=== PATIENT | male | born 1995 | race Caucasian/White ===

== ENCOUNTER 2016-12-01 20:09 | Emergency (ER) | payer SELFPAY ==
[2016-12-01 20:34] VITALS: BP 135/83
--- NOTE | 2016-12-01 20:51 | UC ---
Throat Pain/Nasal Homero HPI - HPI Summary HPI Summary: Started with chest congestion that turned into a sore throat 4-5 days ago. Sister has recently had strep. He had 4 leftover amoxicillin pills, does not know dose, took them and then sx worsened when he ran out. - History of Current Complaint Stated Complaint: SORE THROAT Time Seen by Provider: 12/01/16 20:32 Hx Obtained From: Patient Onset/Duration: Gradual Onset, Lasting Days Severity: Mild Cough: Productive Associated Signs & Symptoms: Negative: Wheezing, Hoarseness, Fever, Vomiting, Rash - Allergies/Home Medications Allergies/Adverse Reactions: Allergies Allergy/AdvReac Type Severity Reaction Status Date / Time No Known Allergies Allergy Verified 12/01/16 20:34 PMH/Surg Hx/FS Hx/Imm Hx Previously Healthy: Yes Other History Of: Negative For: Anticoagulant Therapy - Surgical History Surgical History: Yes Surgery Procedure, Year, and Place: Femur surg at age 2 d/t fx. - Family History Known Family History: Positive: Hypertension - Social History Lives: With Family Alcohol Use: Occasionally Substance Use Type: None Smoking Status (MU): Never Smoked Tobacco Review of Systems Constitutional: Negative Skin: Negative Eyes: Negative ENT: Sore Throat Respiratory: Cough Cardiovascular: Negative Gastrointestinal: Negative Genitourinary: Negative Motor: Negative Neurovascular: Negative Musculoskeletal: Negative Neurological: Negative Psychological: Negative Is Patient Immunocompromised?: No All Other Systems Reviewed And Are Negative: Yes Physical Exam Triage Information Reviewed: Yes Appearance: Well-Appearing, No Pain Distress, Well-Nourished Vital Signs: Initial Vital Signs Temp 98.7 F 12/01/16 20:30 Pulse 77 12/01/16 20:30 Resp 16 12/01/16 20:30 BP 135/83 12/01/16 20:30 Pulse Ox 100 12/01/16 20:30 Vital Signs Reviewed: Yes Eye Exam: Normal Eyes: Positive: Conjunctiva Clear ENT: Positive: TMs normal, Tonsillar swelling. Negative: Pharyngeal erythema, Nasal congestion, Nasal drainage Dental Exam: Normal Neck exam: Normal Neck: Positive: Supple, Nontender, No Lymphadenopathy Respiratory Exam: Normal Respiratory: Positive: Chest non-tender, Lungs clear, Normal breath sounds, No respiratory distress, No accessory muscle use Cardiovascular Exam: Normal Cardiovascular: Positive: RRR, No Murmur Musculoskeletal Exam: Normal Neurological Exam: Normal Neurological: Positive: Alert Psychological Exam: Normal Skin Exam: Normal Throat Pain/Nasal Course/Dx - Differential Dx/Diagnosis Provider Diagnoses: URI, likely viral Discharge - Discharge Plan Condition: Stable Disposition: HOME Patient Education Materials: Upper Respiratory Infection (ED) Referrals: Amanda Blake DO [Primary Care Provider] - Additional Instructions: Rapid strep negative. Call or return if you have severe symptoms or sudden worsening.
== END 2016-12-01 20:55 | disposition home or self-care (01) ==
LOC: UCEAST 20:09
DX: J06.9 Acute upper respiratory infection, unspecified (principal)
CPT/HCPCS: 87651; 99212; G0463

== ENCOUNTER 2017-05-09 16:02 | Emergency (ER) | payer SELFPAY ==
[2017-05-09 16:24] VITALS: BP 165/95
--- NOTE | 2017-05-09 17:05 | UC ---
Cardiac HPI - HPI Summary HPI Summary: gets left sided chest pain when he gets anxious-is not having any pain at this time but did earlier---states he has notice a slow increase in his "intensity" with conversation over the past 2 years and He is never able to sit down and he is always moving about. States he gets migraine headaches and he smokes marijuana for that---patient has notice an increase in personal stresses over the past 2 week--girlfriend had a miscarriage, she has 2 toddler boys he is helping to raise-he is in debt to hos grandmother and she will charge him interest if he is late--Patient states many family members have anxiety disorders and he has never been treated or hospitalized in the past for anxiety- -Patient denies HI/SI - History of Current Complaint Chief Complaint: UCChestPain Stated Complaint: CHEST PAIN, L ARM PAIN Time Seen by Provider: 05/09/17 16:14 Hx Obtained From: Patient Onset/Duration: Gradual Onset, Resolved Timing: Intermittent Episodes Lasting: Initial Severity: Moderate Current Severity: None Pain Intensity: 0 Chest Pain Location: Left Lateral Aggravating Factor(s): Other - personal and life stress Alleviating Factor(s): Spontaneous Resolution Associated Signs & Symptoms: Positive: Anxiety, Recent Stress - Allergy/Home Medications Allergies/Adverse Reactions: Allergies Allergy/AdvReac Type Severity Reaction Status Date / Time No Known Allergies Allergy Verified 05/09/17 16:24 PMH/Surg Hx/FS Hx/Imm Hx Previously Healthy: No Neurological History: Migraine Other History Of: Negative For: Anticoagulant Therapy - Surgical History Surgical History: None Surgery Procedure, Year, and Place: pt denies - Family History Known Family History: Positive: Cardiac Disease, Hypertension, Other - anxiety - Social History Occupation: Employed Full-time Lives: With Family Alcohol Use: Rare Substance Use Type: Marijuana Substance Use Comment - Amount & Last Used: three days ago Smoking Status (MU): Never Smoked Tobacco Review of Systems Constitutional: Negative Skin: Negative Eyes: Negative ENT: Negative Respiratory: Negative Cardiovascular: Negative, Chest Pain - resolved Gastrointestinal: Negative Genitourinary: Negative Motor: Negative Neurovascular: Negative Musculoskeletal: Negative Neurological: Negative Psychological: Anxious Is Patient Immunocompromised?: No All Other Systems Reviewed And Are Negative: Yes Physical Exam Triage Information Reviewed: Yes Appearance: Well-Appearing, No Pain Distress, Well-Nourished Vital Signs: Initial Vital Signs Temp 99.5 F 05/09/17 16:15 Pulse 102 05/09/17 16:15 Resp 16 05/09/17 16:15 BP 165/95 05/09/17 16:15 Pulse Ox 98 05/09/17 16:15 Vital Signs Reviewed: Yes Eye Exam: Normal Eyes: Positive: Conjunctiva Clear ENT Exam: Normal ENT: Positive: Normal ENT inspection, Hearing grossly normal. Negative: Nasal congestion, Trismus, Muffled voice, Hoarse voice, Dental tenderness Dental Exam: Normal Neck exam: Normal Neck: Positive: Supple, Nontender Respiratory Exam: Normal Respiratory: Positive: No respiratory distress, No accessory muscle use Cardiovascular Exam: Normal Cardiovascular: Positive: Pulses Normal, Brisk Capillary Refill Musculoskeletal Exam: Normal Musculoskeletal: Positive: Strength Intact, ROM Intact, No Edema Neurological Exam: Normal Neurological: Positive: Alert, Muscle Tone Normal Psychological Exam: Normal Skin Exam: Normal Diagnostics - EKG Cardiac Rate: NL Cardiac Rhythm: Sinus: Normal Ectopy: None ST Segment: Normal - Assessment/Plan Course Of Treatment: Vistaril PRN Anxiety follow with family and childrens services, hypertension follow with pcp referrals made - Clinical Impression Provider Diagnoses: Ches pain (resolved), social stressors Discharge - Discharge Plan Condition: Stable Disposition: HOME Prescriptions: hydrOXYzine pamoate [Vistaril] 25 - 50 mg PO QID PRN #30 capsule PRN Reason: Anxiety Patient Education Materials: Hypertension (ED), Anxiety (ED) Forms: *Work Release Referrals: [facility] [place] [facility] REFERRAL [Outside] - As Soon As Possible Additional Instructions: Family and Childrens service will be an excellent resource for you please call Thursday for an intake appointment
== END 2017-05-09 17:04 | disposition home or self-care (01) ==
LOC: UCEAST 16:02
DX: R07.89 Other chest pain (principal); F43.9 Reaction to severe stress, unspecified; G43.909 Migraine, unspecified, not intractable, without status migrainosus
CPT/HCPCS: 93005; 99212; G0463

== ENCOUNTER 2017-06-25 12:38 | Emergency (ER) | payer SELFPAY ==
[2017-06-25 12:47] VITALS: BP 151/86
--- NOTE | 2017-06-25 13:11 | UC ---
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 Also c/o "carpal tunnel like sx" of 3 1/2 fingers in left hand. Pt was here a month ago with similar complaint but never had follow up, has no PCP as he recently moved to [place] from [place] - History of Current Complaint Chief Complaint: UCUpperExtremity Stated Complaint: ARM COMPLAINT Time Seen by Provider: 06/25/17 12:46 Hx Obtained From: Patient Onset/Duration: Sudden Onset Severity Initially: Moderate Severity Currently: Moderate Pain Intensity: 6 Character: Sharp, Throbbing Aggravating Factor(s): Movement, Lifting, Flexion - Allergies/Home Medications Allergies/Adverse Reactions: Allergies Allergy/AdvReac Type Severity Reaction Status Date / Time No Known Allergies Allergy Verified 06/25/17 12:47 PMH/Surg Hx/FS Hx/Imm Hx Previously Healthy: Yes Other History Of: Negative For: Anticoagulant Therapy - Surgical History Surgical History: None Surgery Procedure, Year, and Place: pt denies - Family History Known Family History: Positive: Cardiac Disease, Hypertension, Other - anxiety - Social History Alcohol Use: Occasionally Substance Use Type: Marijuana Substance Use Comment - Amount & Last Used: three days ago Smoking Status (MU): Never Smoked Tobacco - Immunization History Most Recent Tetanus Shot: UTD Review of Systems Constitutional: Negative Skin: Negative Eyes: Negative ENT: Negative Respiratory: Negative Cardiovascular: Negative Gastrointestinal: Negative Genitourinary: Negative Motor: Negative Neurovascular: Negative Musculoskeletal: Other: - left shoulder pain Neurological: Negative Psychological: Negative All Other Systems Reviewed And Are Negative: Yes Physical Exam Triage Information Reviewed: Yes Vital Signs: Initial Vital Signs Temp 36.6 C 06/25/17 12:43 Pulse 92 06/25/17 12:43 Resp 18 06/25/17 12:43 BP 151/86 06/25/17 12:43 Pulse Ox 98 06/25/17 12:43 Eye Exam: Normal ENT Exam: Normal Dental Exam: Normal Neck exam: Normal Neck: Positive: 1 Respiratory Exam: Normal Cardiovascular Exam: Normal Abdominal Exam: Normal Musculoskeletal Exam: Normal Musculoskeletal: Positive: ROM Intact, Strength Limited @, Other: - LEFT ARM: ROm intact about the left shoulder joint but TTP on anterior and posterior deltoids, TTP on insertion of short head of biceps tendon medially into the radial tuberosity POSITIVE Phalen's sign, Radial pulse 2+ Neurological Exam: Normal Psychological Exam: Normal Skin Exam: Normal Upper Extremity Course/Dx - Course Course Of Treatment: Pt will need to establish care with a PCP and obtain a referral for MRI and ortho consult - Differential Dx/Diagnosis Provider Diagnoses: Left Rotator cuff tendinopathy and injury. Left biceps tedinitis. carpal tunnel's left hand Discharge - Sign-Out/Discharge Documenting (check all that apply): Discharge - Discharge Plan Condition: Stable Disposition: HOME Prescriptions: Naproxen 500 mg PO BID 10 Days #20 tablet Referrals: [facility] [place] [facility] [Outside] - As Soon As Possible (Please call PCP off ice to schedule appt) - Billing Disposition and Condition Condition: STABLE Disposition: HOME
== END 2017-06-25 13:38 | disposition home or self-care (01) ==
LOC: UCEAST 12:38
DX: S46.012A Strain of muscle(s) and tendon(s) of the rotator cuff of left shoulder, initial encounter (principal); X58.XXXA Exposure to other specified factors, initial encounter; Y93.9 Activity, unspecified; Y92.9 Unspecified place or not applicable; M75.22 Bicipital tendinitis, left shoulder; G56.02 Carpal tunnel syndrome, left upper limb
CPT/HCPCS: 99212; G0463

== ENCOUNTER 2017-07-09 12:21 | Emergency (ER) | payer SELFPAY ==
--- NOTE | 2017-07-09 13:49 | RAD ---
HISTORY: Right ulnar pain, subacute trauma COMPARISONS: None VIEWS: 3, Frontal and lateral views of the right forearm FINDINGS: BONE DENSITY: Normal. BONES: There is no displaced fracture. JOINTS: There is no arthropathy. ALIGNMENT: There is no dislocation. SOFT TISSUES: Unremarkable. OTHER FINDINGS: None. IMPRESSION: NO ACUTE OSSEOUS INJURY. IF SYMPTOMS PERSIST, RECOMMEND REPEAT IMAGING.
--- NOTE | 2017-07-09 13:49 | RAD ---
HISTORY: Right hand pain, fall COMPARISONS: None VIEWS: 2, Frontal and lateral views of the right hand FINDINGS: BONE DENSITY: Normal. BONES: There is no displaced fracture. JOINTS: There is no arthropathy. ALIGNMENT: There is no dislocation. SOFT TISSUES: Unremarkable. OTHER FINDINGS: None. IMPRESSION: NO ACUTE OSSEOUS INJURY. IF SYMPTOMS PERSIST, RECOMMEND REPEAT IMAGING.
[2017-07-09] MEDS ORDERED: Ibuprofen TAB* 600 MG PO ONE (13:52)
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
[2017-07-09 14:35] VITALS: BP 141/82
== END 2017-07-09 14:34 | disposition home or self-care (01) ==
LOC: ED 12:21
DX: S60.221A Contusion of right hand, initial encounter (principal); W22.8XXA Striking against or struck by other objects, initial encounter; Y93.I9 Activity, other involving external motion; Y92.9 Unspecified place or not applicable
CPT/HCPCS: 99282; A9270-GY

== ENCOUNTER 2018-09-24 16:01 | Emergency (ER) | payer SELFPAY ==
--- NOTE | 2018-09-24 18:22 | ED ---
Lower Extremity - HPI Summary HPI Summary: 23-year-old male presents with complaints of ingrown toenail to the right great toe. States he started developing some tenderness and redness to the lateral nail fold approximately one week ago. Has progressively become more tender and he has noted some drainage for the past 2-3 days. States he was seen for similar episode approximately one month ago at [facility] and they attempted to do a wedge resection of the toenail however he states he does not feel that it was successful. Denies any fever or chills. - History of Current Complaint Chief Complaint: EDExtremityLower Stated Complaint: RIGHT BIG TOE INFECTION PER PT Time Seen by Provider: 09/24/18 17:51 Hx Obtained From: Patient Pain Intensity: 7 - Allergies/Home Medications Allergies/Adverse Reactions: Allergies Allergy/AdvReac Type Severity Reaction Status Date / Time No Known Allergies Allergy Verified 09/24/18 16:15 PMH/Surg Hx/FS Hx/Imm Hx Previously Healthy: Yes - Denies significant PMH Endocrine/Hematology History: Denies: Hx Anticoagulant Therapy, Hx Diabetes, Hx Thyroid Disease, Other Endocrine/Hematological Disorders Cardiovascular History: Reports: Hx Hypertension - no medication Denies: Other Cardiovascular Problems/Disorders Respiratory History: Denies: Hx Asthma, Hx Chronic Obstructive Pulmonary Disease (COPD), Other Respiratory Problems/Disorders GI History: Denies: Hx Ulcer, Other GI Disorders History: Denies: Other Problems/Disorders Musculoskeletal History: Denies: Other Musculoskeletal History Sensory History: Denies: Other Sensory Impairments Opthamlomology History: Denies: Other Sensory Impairments Neurological History: Denies: Other Neuro Impairments/Disorders Psychiatric History: Denies: Other Psychiatric Issues/Disorders - Surgical History Surgical History: None Surgery Procedure, Year, and Place: pt denies Infectious Disease History: No Infectious Disease History: Denies: Hx Hepatitis, Hx Human Immunodeficiency Virus (HIV), Traveled Outside the US in Last 30 Days - Family History Known Family History: Positive: Cardiac Disease, Hypertension, Other - anxiety - Social History Occupation: Employed Full-time Lives: With Family Alcohol Use: Occasionally Hx Substance Use: Yes Substance Use Type: Reports: None Substance Use Comment - Amount & Last Used: three days ago Hx Tobacco Use: No Smoking Status (MU): Never Smoked Tobacco Have You Smoked in the Last Year: No Review of Systems Negative: Fever, Chills Cardiovascular: Negative Respiratory: Negative Gastrointestinal: Negative Genitourinary: Negative Positive: Arthralgia, Myalgia Skin: Other - See HPI Neurological: Negative All Other Systems Reviewed And Are Negative: Yes Physical Exam - Summary Physical Exam Summary: GENERAL APPEARANCE: Well developed, well nourished, alert and cooperative, and appears to be in no acute distress. CARDIAC: Normal S1 and S2. No S3, S4 or murmurs. Rhythm is regular. There is no peripheral edema, cyanosis or pallor. Extremities are warm and well perfused. Capillary refill is less than 2 seconds. Peripheral pulses intact. LUNGS: Clear to auscultation without rales, rhonchi, wheezing or diminished breath sounds. ABDOMEN: Positive bowel sounds. Soft, nondistended, nontender. No guarding or rebound. No masses or hepatosplenomegally. MUSKULOSKELETAL: ROM intact to all extremities. No joint erythema or tenderness. Normal muscular development. EXTREMITIES: Ingrown toenail of the right great toe with mild tenderness, erythema, and crusting along the lateral nailfold. No induration or fluctuance noted. Full ROM to the toe. Circulation and sensation intact. SKIN: Skin normal color, texture and turgor. Vital Signs On Initial Exam: Initial Vitals Temp Pulse Resp BP Pulse Ox 98.6 F 76 16 163/110 98 09/24/18 16:13 09/24/18 16:13 09/24/18 16:13 09/24/18 16:13 09/24/18 16:13 Diagnostics - Vital Signs Vital Signs Temp Pulse Resp BP Pulse Ox 09/24/18 16:13 98.6 F 76 16 163/110 98 - Laboratory Lab Statement: Any lab studies that have been ordered have been reviewed, and results considered in the medical decision making process. Lower Extremity Course/Dx - Course Course Of Treatment: 23-year-old male presents with complaints of ingrown toenail to the right great toe. States he started developing some tenderness and redness to the lateral nail fold approximately one week ago. Has progressively become more tender and he has noted some drainage for the past 2- 3 days. States he was seen for similar episode approximately one month ago at [facility] and they attempted to do a wedge resection of the toenail however he states he does not feel that it was successful. Denies any fever or chills. Afebrile. Hypertensive otherwise vital signs stable. Patient had ingrown toenail of the right great toe with mild tenderness, erythema, and crusting along the lateral nailfold. No induration or fluctuance noted. Full ROM to the toe. Circulation and sensation intact. Recommending treatment of the infection with cephalexin 500 mg 3 times a day 7 days with follow-up with podiatry for further evaluation and treatment. Anticipatory guidance and warning symptoms are reviewed with the patient. Verbalizes understanding and agrees with plan of care. - Diagnoses Differential Diagnosis/HQI/PQRI: Positive: Cellulitis, Gout, Septic Arthritis, Other - Ingrown toenail Provider Diagnoses: Ingrowing right great toenail Discharge - Sign-Out/Discharge Documenting (check all that apply): Patient Departure Patient Received Moderate/Deep Sedation with Procedure: No - Discharge Plan Condition: Stable Disposition: HOME Prescriptions: cephALEXin [Keflex] 500 mg PO TID #21 capsule Patient Education Materials: Ingrown Nail (ED) Referrals: No Primary Care Phys,NOPCP [Primary Care Provider] - Ernesto Cantu DPM [Doctor of Podiatric Medicine] - Additional Instructions: You have an infected ingrown toenail of the right great toe. We will start you on an antibiotic to treat then infection. Start cephalexin (Keflex) 500 mg 1 capsule 3 times a day for 7 days. Take acetaminophen (Tylenol) or ibuprofen (Advil, Motrin) according directions as needed for pain. Soak the foot in a warm water and Epsom salt solution 3-4 times a day. Follow-up with podiatry in 5-7 days for further evaluation and treatment. Call tomorrow for an appointment. Return to the emergency room if you develop a fever greater than 100.5 F, have severe pain that is not managed with acetaminophen or ibuprofen, have increased redness or swelling, develop any numbness or tingling in the toe, or any worsening of symptoms. - Billing Disposition and Condition Condition: STABLE Disposition: Home
[2018-09-24 18:55] VITALS: BP 143/76
== END 2018-09-24 18:54 | disposition home or self-care (01) ==
LOC: ED 16:01
DX: L60.0 Ingrowing nail (principal); I10 Essential (primary) hypertension
CPT/HCPCS: 99281

== ENCOUNTER 2018-10-26 10:40 | Emergency (ER) | payer SELFPAY ==
[2018-10-26] MEDS ORDERED: Lidocaine 1% MPF ** 5 ML VIAL INJ ONE (11:49)
--- NOTE | 2018-10-26 12:19 | ED ---
Lower Extremity - HPI Summary HPI Summary: 23 year old female presents with ingrown toenail for the past week. He states that month or so ago he was treated for an ingrown toenail at different hospital. He was ordered antibiotics but did not complete such. He states is doing warm soaks area and pulling back the skin. He states that he had issues with ingrown toenails in the past and had to see podiatry. States he currently does not insurance so was not able to follow podiatry. Has family history of ingrown toenails. He states having been having increasing pain. denies any fevers. He has been noticing drainage and spreading redness around the area. - History of Current Complaint Chief Complaint: EDExtremityLower Stated Complaint: INFECTED TOE ON RIGHT FOOT PER PT Time Seen by Provider: 10/26/18 11:35 Pain Intensity: 10 - Allergies/Home Medications Allergies/Adverse Reactions: Allergies Allergy/AdvReac Type Severity Reaction Status Date / Time No Known Allergies Allergy Verified 10/26/18 11:58 PMH/Surg Hx/FS Hx/Imm Hx Endocrine/Hematology History: Denies: Hx Anticoagulant Therapy, Hx Diabetes, Hx Thyroid Disease, Other Endocrine/Hematological Disorders Cardiovascular History: Reports: Hx Hypertension - no medication Denies: Other Cardiovascular Problems/Disorders Respiratory History: Denies: Hx Asthma, Hx Chronic Obstructive Pulmonary Disease (COPD), Other Respiratory Problems/Disorders GI History: Denies: Hx Ulcer, Other GI Disorders History: Denies: Other Problems/Disorders Musculoskeletal History: Denies: Other Musculoskeletal History Sensory History: Denies: Other Sensory Impairments Opthamlomology History: Denies: Other Sensory Impairments Neurological History: Denies: Other Neuro Impairments/Disorders Psychiatric History: Denies: Other Psychiatric Issues/Disorders - Surgical History Surgery Procedure, Year, and Place: pt denies Infectious Disease History: No Infectious Disease History: Denies: Hx Hepatitis, Hx Human Immunodeficiency Virus (HIV), Traveled Outside the [place] in Last 30 Days - Family History Known Family History: Positive: Cardiac Disease, Hypertension, Other - anxiety - Social History Alcohol Use: Occasionally Hx Substance Use: Yes Substance Use Type: Reports: None Substance Use Comment - Amount & Last Used: three days ago Hx Tobacco Use: No Smoking Status (MU): Never Smoked Tobacco Have You Smoked in the Last Year: No Review of Systems Negative: Fever Negative: Chest Pain Negative: Shortness Of Breath Positive: Other - right big toe pain Positive: Rash All Other Systems Reviewed And Are Negative: Yes Physical Exam Triage Information Reviewed: Yes Vital Signs On Initial Exam: Initial Vitals Temp Pulse Resp BP Pulse Ox 97.8 F 89 18 125/96 97 10/26/18 10:42 10/26/18 10:42 10/26/18 10:42 10/26/18 10:42 10/26/18 10:42 Vital Signs Reviewed: Yes Appearance: Positive: Well-Appearing Skin: Positive: Warm, Dry Head/Face: Positive: Normal Head/Face Inspection Eyes: Positive: Normal, Conjunctiva Clear ENT: Positive: Pharynx normal Respiratory/Lung Sounds: Positive: Clear to Auscultation, Breath Sounds Present Cardiovascular: Positive: Normal, RRR Musculoskeletal: Positive: Other - ingrown toe nail with paronychia of right toe Neurological: Positive: Normal Psychiatric: Positive: Normal Procedures - Incision and Drainage right great toe Site: right great toe Anesthesia: Digital Instrument(s): Scalpel, Other - scissors removed part of nail Diagnostics - Vital Signs Vital Signs Temp Pulse Resp BP Pulse Ox 10/26/18 10:42 97.8 F 89 18 125/96 97 - Laboratory Lab Statement: Any lab studies that have been ordered have been reviewed, and results considered in the medical decision making process. Lower Extremity Course/Dx - Course Course Of Treatment: 23 year old female presents with ingrown toenail for the past week. He states that month or so ago he was treated for an ingrown toenail at different hospital. He was ordered antibiotics but did not complete such. He states is doing warm soaks area and pulling back the skin. He states that he had issues with ingrown toenails in the past and had to see podiatry. States he currently does not insurance so was not able to follow podiatry. Has family history of ingrown toenails. He states having been having increasing pain. denies any fevers. He has been noticing drainage and spreading redness around the area. On exam has ingrown toenail with paronychia of right great toe. Performed a digital block which did not all the way work. Removed part of the toenail. Remove and debrided the skin with paronychia. Applied silver nitrate to stop the bleeding. Told to continue doing warm soaks area. Will place patient on Keflex. patient understand and agrees with plan. - Diagnoses Differential Diagnosis/HQI/PQRI: Positive: Cellulitis, Other - abscess, ingrogn toenail Provider Diagnoses: Ingrowing nail, right great toe, Paronychia due to ingrown nail Discharge - Sign-Out/Discharge Documenting (check all that apply): Patient Departure Patient Received Moderate/Deep Sedation with Procedure: No - Discharge Plan Condition: Good Disposition: HOME Prescriptions: Cephalexin CAP* [Keflex CAP*] 500 mg PO BID #19 cap Patient Education Materials: Ingrown Nail (ED) Forms: *Work Release Referrals: [facility] [Outside] Additional Instructions: Take antibiotic twice a day for 10 days, first dose given in ED do warm soaks of the area Take ibuprofen or Tylenol for pain every 6 hours establish care with podiatry and primary Return to ED if develop any new or worsening symptoms - Billing Disposition and Condition Condition: GOOD Disposition: Home - Attestation Statements Provider Attestation: I was available for consult. This patient was seen by the [facility]. The patient was not presented to, seen by, or examined by me. -Mahesh
[2018-10-26] MEDS ORDERED: Silver Nitrate/Potassium Nitr* 1 EA STICK ONE (13:29)
[2018-10-26] MEDS ORDERED: Silver Nitrate/Potassium Nitr* 1 EA STICK TOPICAL ONE (13:29)
[2018-10-26] MEDS ORDERED: Cephalexin CAP* 500 MG PO ONE (13:39)
[2018-10-26 14:12] VITALS: BP 144/80
--- NOTE | 2018-10-27 05:57 | PN ---
Progress Note - Progress Note Date of Service: 10/27/18 Note: Wound culture positive for staph. Patient placed on Keflex. Will wait for final culture for sensitivity.
--- NOTE | 2018-10-29 05:39 | PN ---
Progress Note - Progress Note Date of Service: 10/29/18 Note: Patient placed on keflex which wound culture shows is sensitivity to. No further action required.
== END 2018-10-26 14:11 | disposition home or self-care (01) ==
LOC: ED 10:40
DX: L60.0 Ingrowing nail (principal); L03.031 Cellulitis of right toe; I10 Essential (primary) hypertension
CPT/HCPCS: 11750; 87070; 87076; 87077; 87186; 87205; 87640; 87641; 99282; A9270-GY

== ENCOUNTER 2018-11-24 13:48 | Emergency (ER) | payer MEDICAID ==
--- NOTE | 2018-11-24 14:37 | ED ---
Lower Extremity - HPI Summary HPI Summary: This patient is a 23 year old M presenting to [facility] with a chief complaint of right big toe pain and infection since 3 months ago. Pt says he has an appointment with his creel operator next month, but is in the ED for pain relief. Pt previously was taking antibiotics, but once he stopped taking it, the pain worsened. Pt takes Ibuprofen for pain. The patient rates the pain 6/10 in severity. Symptoms aggravated by wearing socks and shoes. Symptoms alleviated by antibiotics and Ibuprofen. Patient reports pins and needle sensation in his toes, numbness in right foot, pus coming out of his right big toenail. Patient denies fever, chills, nausea, vomiting. Medications reviewed. Allergies noted. Pt uses marijuana. - History of Current Complaint Chief Complaint: EDMedicationRefill Stated Complaint: RT BIG TOE INF PER PT Time Seen by Provider: 11/24/18 14:24 Hx Obtained From: Patient Onset/Duration: Weeks - 3 months ago Severity Initially: Mild Severity Currently: Moderate Pain Intensity: 6 Pain Scale Used: 0-10 Numeric Timing: Constant Location: Other - right big toe Associated Signs And Symptoms: Positive: Other - positive - right big toe pain, pins and needle sensation in his toes, numbness in right foot, pus coming out of his right big toenail. negative - chills, nausea, vomiting.. Negative: Fever Aggravating Factor(s): Other - wearing socks and shoes Alleviating Factor(s): Other - antibiotics and Ibuprofen - Allergies/Home Medications Allergies/Adverse Reactions: Allergies Allergy/AdvReac Type Severity Reaction Status Date / Time No Known Allergies Allergy Verified 11/24/18 14:42 PMH/Surg Hx/FS Hx/Imm Hx Previously Healthy: No Endocrine/Hematology History: Denies: Hx Anticoagulant Therapy, Hx Diabetes, Hx Thyroid Disease, Other Endocrine/Hematological Disorders Cardiovascular History: Reports: Hx Hypertension - no medication Denies: Other Cardiovascular Problems/Disorders Respiratory History: Denies: Hx Asthma, Hx Chronic Obstructive Pulmonary Disease (COPD), Other Respiratory Problems/Disorders GI History: Denies: Hx Ulcer, Other GI Disorders History: Denies: Other Problems/Disorders Musculoskeletal History: Denies: Other Musculoskeletal History Sensory History: Denies: Other Sensory Impairments Opthamlomology History: Denies: Other Sensory Impairments Neurological History: Denies: Other Neuro Impairments/Disorders Psychiatric History: Denies: Other Psychiatric Issues/Disorders - Surgical History Surgical History: None Surgery Procedure, Year, and Place: pt denies Infectious Disease History: No Infectious Disease History: Denies: Hx Hepatitis, Hx Human Immunodeficiency Virus (HIV), Traveled Outside the [place] in Last 30 Days - Family History Known Family History: Positive: Cardiac Disease, Hypertension, Other - anxiety - Social History Alcohol Use: Occasionally Hx Substance Use: Yes Substance Use Type: Reports: None Substance Use Comment - Amount & Last Used: three days ago Hx Tobacco Use: No Smoking Status (MU): Never Smoked Tobacco Have You Smoked in the Last Year: No Review of Systems Negative: Fever, Chills Negative: Vomiting, Nausea Musculoskeletal: Other - positive - right big toe pain Skin: Other - positive - pus coming out of his right big toenai Neurological: Other - positive - pins and needle sensation in his toes Positive: Numbness - in right foot Positive: Other All Other Systems Reviewed And Are Negative: Yes Physical Exam - Summary Physical Exam Summary: Constitutional: Well-developed, Well-nourished, Alert. (-) Distressed Skin: Warm, Dry. Right toe medial aspect removed, no draining, full ROM of toe. HENT: Normocephalic; Atraumatic Eyes: Conjunctiva normal Neck: Musculoskeletal ROM normal neck. (-) JVD, (-) Stridor, (-) Tracheal deviation Cardio: Rhythm regular, rate normal, Heart sounds normal; Intact distal pulses; The pedal pulses are 2+ and symmetric. Radial pulses are 2+ and symmetric. (-) Murmur Pulmonary/Chest wall: Effort normal. (-) Respiratory distress, (-) Wheezes, (-) Rales Abd: Soft, (-) tenderness, (-) Distension, (-) Guarding, (-) Rebound Musculoskeletal: (-) Edema. Lymph: (-) Cervical adenopathy Neuro: Alert, Oriented x3 Psych: Mood and affect Normal Triage Information Reviewed: Yes Vital Signs On Initial Exam: Initial Vitals Temp Pulse Resp BP Pulse Ox 98.4 F 71 16 156/89 98 11/24/18 14:04 11/24/18 14:04 11/24/18 14:04 11/24/18 14:04 11/24/18 14:04 Vital Signs Reviewed: Yes Diagnostics - Vital Signs Vital Signs Temp Pulse Resp BP Pulse Ox 11/24/18 14:04 98.4 F 71 16 156/89 98 - Laboratory Lab Statement: Any lab studies that have been ordered have been reviewed, and results considered in the medical decision making process. Lower Extremity Course/Dx - Course Course Of Treatment: Patient is here with infection on his great toe. Patient' s had some symptoms off and on through his life. Patient had a toenail move her procedure performed here last month with initial improvement but now has worsening infection. Patient declined further removal of his toenail. Patient was started on Keflex as his infection was sensitive to it and his last culture. Patient's follow-up with a creel operator in 3 weeks. - Diagnoses Provider Diagnoses: Ingrown toenail Discharge ED - Sign-Out/Discharge Documenting (check all that apply): Patient Departure - discharge Patient Received Moderate/Deep Sedation with Procedure: No - Discharge Plan Condition: Stable Disposition: HOME Prescriptions: Cephalexin CAP* [Keflex CAP*] 500 mg PO BID 14 Days #28 cap Patient Education Materials: Ingrown Nail (ED) Forms: *Work Release Referrals: [facility] [Outside] - 2 Days Additional Instructions: Follow up with your creel operator on your scheduled appointment. Follow up with a primary care provider within 1-3 days. Return to the ED for any new or worsening symptoms. - Billing Disposition and Condition Condition: STABLE Disposition: Home - Attestation Statements Document Initiated by Milan: Yes Documenting Scribe: Payam Arellano Provider For Whom Milan is Documenting (Include Credential): Dr. Juan Youngblood MD Scribe Attestation: Payam Heller scribed for Dr. Juan Youngblood MD on 11/24/18 at 1912. Scribe Documentation Reviewed: Yes Provider Attestation: The documentation as recorded by the Payam sequeira accurately reflects the service I personally performed and the decisions made by me, Dr. Juan Youngblood MD Status of Scribe Document: Viewed
[2018-11-24 14:48] VITALS: BP 0/0
== END 2018-11-24 14:47 | disposition home or self-care (01) ==
LOC: ED 13:48
DX: L60.0 Ingrowing nail (principal); I10 Essential (primary) hypertension
CPT/HCPCS: 99282

== ENCOUNTER 2018-11-25 09:05 | Emergency (ER) | payer MEDICAID ==
[2018-11-25 09:33] VITALS: BP 157/90
--- NOTE | 2018-11-25 10:44 | ED ---
Lower Extremity - HPI Summary HPI Summary: This patient is a 23-year-old male who presents to the ED with a right great toe injury/infection. He is here today requesting a note for work. Patient states over the past several weeks, he has been treating a ingrown toenail. He was seen at the [facility] and part of the toenail was removed. He states it had been healing, however he injured it again by stubbing his toe. Since then he believes the toe became infected, was seen yesterday and rx antibiotics. He states sxs have improved and erythema to the great toe has reduced, however he is requesting a note for work at this time. He continues to use Epson salt soaks daily. Patient is requesting note for work as he wears steel toed boots and states this has been rubbing on the area, worsening symptoms. - History of Current Complaint Chief Complaint: EDExtremityLower Stated Complaint: RT TO INFECTION PER PT Time Seen by Provider: 11/25/18 09:14 Hx Obtained From: Patient Mechanism Of Injury: Other - partial nail avulsion to the R great toe Pain Intensity: 6 Pain Scale Used: 0-10 Numeric Location: Is Discrete @ - right great toe Character Of Pain: Aching Associated Signs And Symptoms: Negative: Swelling, Redness, Bruising Aggravating Factor(s): Standing, Ambulation Alleviating Factor(s): Rest Able to Bear Weight: No - Risk Factors Gout Risk Factors: Negative DVT Risk Factors: Negative Septic Arthritis Risk Factor: Negative - Allergies/Home Medications Allergies/Adverse Reactions: Allergies Allergy/AdvReac Type Severity Reaction Status Date / Time No Known Allergies Allergy Verified 11/25/18 09:06 PMH/Surg Hx/FS Hx/Imm Hx Previously Healthy: Yes Endocrine/Hematology History: Denies: Hx Anticoagulant Therapy, Hx Diabetes, Hx Thyroid Disease, Other Endocrine/Hematological Disorders Cardiovascular History: Reports: Hx Hypertension - no medication Denies: Other Cardiovascular Problems/Disorders Respiratory History: Denies: Hx Asthma, Hx Chronic Obstructive Pulmonary Disease (COPD), Other Respiratory Problems/Disorders GI History: Denies: Hx Ulcer, Other GI Disorders History: Denies: Other Problems/Disorders Musculoskeletal History: Denies: Other Musculoskeletal History Sensory History: Denies: Other Sensory Impairments Opthamlomology History: Denies: Other Sensory Impairments Neurological History: Denies: Other Neuro Impairments/Disorders Psychiatric History: Denies: Other Psychiatric Issues/Disorders - Surgical History Surgery Procedure, Year, and Place: pt denies - Immunization History Hx Pertussis Vaccination: No Immunizations Up to Date: Yes Infectious Disease History: No Infectious Disease History: Denies: Hx Hepatitis, Hx Human Immunodeficiency Virus (HIV), Traveled Outside the [place] in Last 30 Days - Family History Known Family History: Positive: Cardiac Disease, Hypertension, Other - anxiety - Social History Occupation: Employed Full-time Lives: With Family Alcohol Use: Occasionally Hx Substance Use: Yes Substance Use Type: Reports: None Substance Use Comment - Amount & Last Used: three days ago Hx Tobacco Use: No Smoking Status (MU): Never Smoked Tobacco Have You Smoked in the Last Year: No Review of Systems Constitutional: Negative Negative: Fever, Chills, Fatigue, Skin Diaphoresis Negative: Palpitations, Chest Pain Negative: Shortness Of Breath, Cough Negative: Abdominal Pain, Vomiting Positive: Arthralgia - right great toe injury- nail avulsion Positive: Other - nail avulsion Neurological: Negative All Other Systems Reviewed And Are Negative: Yes Physical Exam Triage Information Reviewed: Yes Vital Signs On Initial Exam: Initial Vitals Temp Pulse Resp BP Pulse Ox 98.3 F 69 15 160/93 97 11/25/18 09:06 11/25/18 09:06 11/25/18 09:06 11/25/18 09:06 11/25/18 09:06 Vital Signs Reviewed: Yes Appearance: Positive: Well-Appearing, Well-Nourished Skin: Positive: Warm, Skin Color Reflects Adequate Perfusion Head/Face: Positive: Normal Head/Face Inspection Eyes: Positive: EOMI, Conjunctiva Clear Neck: Positive: Supple, No Lymphadenopathy Respiratory/Lung Sounds: Positive: Clear to Auscultation, Breath Sounds Present Cardiovascular: Positive: RRR, Pulses are Symmetrical in both Upper and Lower Extremities Musculoskeletal: Positive: Pain @ - right great toe Neurological: Positive: Speech Normal Psychiatric: Positive: Affect/Mood Appropriate Diagnostics - Vital Signs Vital Signs Temp Pulse Resp BP Pulse Ox 11/25/18 09:32 98 F 63 16 157/90 98 11/25/18 09:06 98.3 F 69 15 160/93 97 - Laboratory Lab Statement: Any lab studies that have been ordered have been reviewed, and results considered in the medical decision making process. Lower Extremity Course/Dx - Course Course Of Treatment: Physical examination, there is a healing right great toenail partial avulsion. No evidence of infection. Small amount of dried blood around the area and he continues to soak the area twice daily in epsom salt. He is requesting note for work. Continues to take abx. He is given a note for work and is encouraged continuation of Epsom salt encouraged Tylenol and ibuprofen. He is also encouraged gauze wrapped as well as antibiotic ointment over the toe prior to returning to work. - Diagnoses Differential Diagnosis/HQI/PQRI: Positive: Other - nail avulsion Provider Diagnoses: Pain of right great toe Discharge ED - Sign-Out/Discharge Documenting (check all that apply): Patient Departure Patient Received Moderate/Deep Sedation with Procedure: No - Discharge Plan Condition: Stable Disposition: HOME Forms: *Work Release Referrals: No Primary Care Phys,NOPCP [Primary Care Provider] - Additional Instructions: Continue to soak the toe and continue to take antibiotics Use antibiotic ointment and gauze wrap the toe prior to placing in show Tylenol and ibuprofen intermittently for discomfort - Billing Disposition and Condition Condition: STABLE Disposition: Home
== END 2018-11-25 09:32 | disposition home or self-care (01) ==
LOC: ED 09:05
DX: M79.674 Pain in right toe(s) (principal); I10 Essential (primary) hypertension
CPT/HCPCS: 99282